=== PATIENT | male | born 1965 | race Hispanic/Latino ===

== ENCOUNTER 2017-06-16 20:40 | Emergency (ER) | payer SELFPAY ==
[~2017-06-16] VITALS: Ht 152.4 cm; Wt 104.3 kg
[2017-06-16] MEDS ORDERED: LIDOCAINE HCL 1% LOCAL INJ 20 ML VIAL INJ ONE (22:00)
[2017-06-16] MEDS ORDERED: CLINDAMYCIN PHOS 600 MG/ 4 ML VIAL IM ONE (22:00)
[2017-06-16 22:18] VITALS: BP 155/75
== END 2017-06-16 22:00 | disposition home or self-care (01) ==
LOC: FSED 20:40
DX: S61.311A Laceration without foreign body of left index finger with damage to nail, initial encounter (principal); W29.3XXA Contact with powered garden and outdoor hand tools and machinery, initial encounter; Y99.0 Civilian activity done for income or pay
CPT/HCPCS: 11730; 12002; 73140; 99283; J2001